=== PATIENT | male | born 2000 | race Caucasian/White ===

== ENCOUNTER 2022-12-31 09:22 | Emergency (ER) | payer OTHER ==
--- NOTE | 2022-12-31 10:59 | XRAY Report ---
PROCEDURE: Finger(s) RT INDICATIONS: Trauma TECHNIQUE: AP hand, 2 views of the third finger(s) acquired. COMPARISON: X-ray hand 12/31/2022 FINDINGS: Bones: No fractures or dislocations. No suspicious bony lesions. Soft tissues: No suspicious soft tissue calcifications or masses. IMPRESSION: No visualized acute fracture or dislocation. However, occult injury cannot be excluded. Recommend malaika rt interval imaging follow-up in 7-10 days as clinically indicated for additional evaluation. Reviewed by: Amanda Bowling MD on 12/31/2022 10:58 AM [facility] Approved by: Amanda Bowling MD on 12/31/2022 10:58 AM [facility] Station ID: [id number]
--- NOTE | 2022-12-31 11:00 | XRAY Report ---
PROCEDURE: Hand 3 View RT INDICATIONS: Trauma TECHNIQUE: 3 views of the hand(s) acquired. COMPARISON: X-ray finger 12/31/2022 FINDINGS: Bones: No fractures or dislocations. No suspicious bony lesions. Soft tissues: No suspicious soft tissue calcifications or masses. IMPRESSION: No visualized acute fracture or dislocation. However, occult injury cannot be excluded. Recommend malaika rt interval imaging follow-up in 7-10 days as clinically indicated for additional evaluation. Reviewed by: Amanda Bowling MD on 12/31/2022 10:58 AM [facility] Approved by: Amanda Bowling MD on 12/31/2022 10:58 AM [facility] Station ID: [id number]
--- NOTE | 2022-12-31 11:18 | ED Physician Documentation ---
PD HPI UPPER EXT INJURY - Stated complaint Stated Complaint: RT FINGER LAC - Chief complaint Chief Complaint: Trauma Ext - History obtained from History obtained from: Patient - Additonal information Additional information: Patient is a 22-year-old male presenting for evaluation of Right middle finger injury after smashing it while working on his car. He does report some bleeding from around the nailbed. He does not take a blood thinner. His last tetanus was a few years ago. He has some discomfort to the distal portion of his finger but has good range of motion. Review of Systems Musculoskeletal: reports: Extremity pain PD PAST MEDICAL HISTORY - Past Medical History Past Medical History: Yes Cardiovascular: None Respiratory: None Neuro: None Endocrine/Autoimmune: None GI: None : None HEENT: None Psych: Anxiety, ADD/ADHD, Obsessive compulsive disorder, Other Musculoskeletal: None Derm: None Other Past Medical History: ASD - Past Surgical History Past Surgical History: No - Present Medications Home Medications: Ambulatory Orders Medication Instructions Recorded Confirmed No Known Home Medications 12/31/22 12/31/22 - Allergies Allergies/Adverse Reactions: Allergies Allergy/AdvReac Type Severity Reaction Status Date / Time amoxicillin Allergy Unknown Verified 12/31/22 09:33 - Social History Does the pt smoke?: Yes Smoking Status: Current every day smoker Does the pt drink ETOH?: No Does the pt have substance abuse?: Yes Substance Use and Type: Marijuana - Immunizations Immunizations are current?: No Immunizations: TDAP current <10years PD ED PE NORMAL - General General: Alert and oriented X 3, No acute distress, Well developed/nourished - HEENT HEENT: Atraumatic - Cardiac Cardiac: Strong equal pulses - Derm Derm: Warm and dry - Extremities Extremities: No deformity, No tenderness to palpate, Other (No deformity to the nail but there is a small amount of blood around the nail edges,Some blood under the fingernail that is draining). No: Normal ROM s pain (Reports pain with flexion at DIP but has no point tenderness) Results - Vitals Vitals: Vital Signs - 24 hr 12/31/22 12/31/22 09:33 11:47 Temperature 36.4 C L 36.5 C Heart Rate 111 H 87 Respiratory 18 16 Rate Blood Pressure 121/63 119/79 O2 Saturation 98 99 Oxygen O2 Source Room air PD Medical Decision Making - ED course ED course: Patient presenting for evaluation of injury to right middle finger. X-rays were obtained which I reviewed I see no fracture or dislocation. There is no visible laceration to suture. His tetanus is up-to-date. There is no significant subungual hematoma to drain at this time and we did apply a finger splint. Patient is counseled on concerning symptoms to return for including worsening pain or increasing hematoma under the nailbed that is no longer draining. Departure - Departure Disposition: 01 Home, Self Care Clinical Impression: Injury of right middle finger Condition: Stable Instructions: ED Sprain Finger, ED Hematoma Subungual Comments: The x-ray does not show a broken or dislocated bone in your finger but you could have a sprain and bruise. We have applied a finger splint for comfort. Continue with acetaminophen or ibuprofen as needed for pain along with ice and rest. There is also a little bit of blood underneath the fingernail. At this time I do not think he requires an intervention to be drained but if tomorrow you noticed that there is more blood and it is becoming unbearable then I would recommend returning to the emergency department to allow us to drain it. Forms: PCP List, Activity restrictions Discharge Date/Time: 12/31/22 11:47
[2022-12-31 11:58] VITALS: BP 119/79; O2SAT 99
== END 2022-12-31 11:47 | disposition home or self-care (01) ==
LOC: ED 09:22
DX: S67.192A Crushing injury of right middle finger, initial encounter (principal); X58.XXXA Exposure to other specified factors, initial encounter; Y92.810 Car as the place of occurrence of the external cause; F17.200 Nicotine dependence, unspecified, uncomplicated
CPT/HCPCS: 99283